=== PATIENT | male | born 1945 | race Caucasian/White ===

== ENCOUNTER 2017-12-01 10:16 | Emergency (ER) | payer MEDICARE ==
[2017-12-01 10:47] VITALS: BP 165/75
--- NOTE | 2017-12-01 11:15 | UC ---
Skin Complaint HPI - HPI Summary HPI Summary: , pt noted a discomfort to his L inner thigh. last pm he noted a couple of spots to his L upper that now look "clustered" plus there are more spots to his inner thigh. he belen any fever, changes in his BS, malaise and swollen glands in his groin. he wonders if it is an insect bite. he denies any other rash and no family has the rash. he self tx last pm with topical benadryl and topical antibiotic with no change. he states is does not itch or hurt. pt also notes some decreased sensation in his L leg but "only on the surface and not deep". he has peripheral neuropathy but wants to ensure not related to this rash. he denies any back pain. - History of Current Complaint Chief Complaint: UCSkin Time Seen by Provider: 12/01/17 11:08 Stated Complaint: LEFT LEG COMPLAINT Hx Obtained From: Patient, Family/Diaper Machine Tender Onset/Duration: Gradual Onset Timing: Constant Pain Intensity: 1 Aggravating Factor(s): Nothing Alleviating Factor(s): Nothing Associated Signs & Symptoms: Positive: Rash. Negative: Fever, Tenderness, Red Streaks - Allergy/Home Medications Allergies/Adverse Reactions: Allergies Allergy/AdvReac Type Severity Reaction Status Date / Time No Known Allergies Allergy Verified 12/01/17 10:34 Home Medications: Home Medications Aspirin 325 mg PO DAILY 12/01/17 [History Confirmed 12/01/17] Canagliflozin (NF) [Invokana (NF)] 100 mg PO DAILY 12/01/17 [History Confirmed 12/01/17] Glyburid/Metformin 5/500(NF) [Glucovance 5/500 (NF)] 1 tab PO BID 12/01/17 [ History Confirmed 12/01/17] Isosorbide Mononitrate ER TAB* [Imdur ER TAB*] 30 mg PO DAILY 12/01/17 [History Confirmed 12/01/17] Rosuvastatin (NF) [Crestor (NF)] 40 mg PO DAILY 12/01/17 [History Confirmed ] Tamsulosin CAP* [Flomax CAP*] 0.4 mg PO DAILY 12/01/17 [History Confirmed ] Review of Systems Constitutional: Negative Skin: Rash - LLE Eyes: Negative ENT: Negative Respiratory: Negative Cardiovascular: Negative Gastrointestinal: Negative Genitourinary: Negative Motor: Negative Neurovascular: Negative Musculoskeletal: Negative Neurological: Numbness - LLE Psychological: Negative All Other Systems Reviewed And Are Negative: Yes PMH/Surg Hx/FS Hx/Imm Hx - Additional Past Medical History Additional PMH: diabetic neuropathy LLE Endocrine History: Diabetes, Dyslipidemia Cardiovascular History: Cardiac Disease - Surgical History Surgical History: Yes Surgery Procedure, Year, and Place: quad bipass - Family History Known Family History: Positive: Other - high cholesterol - Social History Occupation: Retired Lives: With Family Alcohol Use: None Substance Use Type: None Smoking Status (MU): Never Smoked Tobacco - Immunization History Vaccination Up to Date: Yes Physical Exam Triage Information Reviewed: Yes Appearance: Well-Appearing Vital Signs: Initial Vital Signs Temp 97.7 F 12/01/17 10:36 Pulse 70 12/01/17 10:36 Resp 16 12/01/17 10:36 BP 165/75 12/01/17 10:36 Pulse Ox 100 12/01/17 10:36 Vital Signs Reviewed: Yes Eyes: Positive: Conjunctiva Clear ENT: Positive: Pharynx normal, TMs normal. Negative: Nasal congestion, Nasal drainage Neck: Positive: Supple, Nontender, No Lymphadenopathy Respiratory: Positive: Lungs clear, Normal breath sounds Cardiovascular: Positive: RRR, No Murmur Abdomen Description: Positive: Nontender, No Organomegaly, Soft, Other: - No inguinal adenopathy. Negative: Distended, Guarding Bowel Sounds: Positive: Present Musculoskeletal: Positive: ROM Intact, No Edema Neurological: Positive: Alert, Other: - decreased superficial sensation LLE, mostly lateral compared to R otherwise pt has grosss s/v/m function x4 and a normal steady gait. sciatic notch on L is non tender, spine is non tender. he has negative straight leg raises. Psychological: Positive: Normal Response To Family, Age Appropriate Behavior Skin Exam: Normal Skin: Positive: rashes - L upper anterior to medial thigh has a single cluster of 6 tiny vesicle. The L upper inner thigh has a dozen scattered-non clustered tiny vesicle. There are no pustules. The spots are not petechial or tender to touch. There are no burrows or scale. Course/Dx - Course Course Of Treatment: pt advised of hx neuropathy LLE. I think the decreased sensation is from his neuropathy. there is nothing to suggest lumbar radiculopathy or sciatica or central neurologic process. The rash is no c/w insect bites, contact dermatitis, fungus and does not look bacterial. It is not typical for shingles but looks most c/w a herpetic type of rash. pt declined viral and bacterial cultures or the rash. he also declined antiviral tx. pt wishes to observe the rash. since his pcp is in [place] I will refer him to dermatology for f/u. need for recheck immediately if any worsening stressed at time of visit. BP repeated at time of d/c and improved. Does have hx tx HTN. - Diagnoses Provider Diagnoses: Acute rash L upper thigh. Diabetic neuropathy LLE Discharge - Sign-Out/Discharge Documenting (check all that apply): Patient Departure All imaging exams completed and their final reports reviewed: No Studies - Discharge Plan Condition: Stable Disposition: HOME Patient Education Materials: Diabetic Peripheral Neuropathy (ED), Acute Rash ( ED) Referrals: Scott Gore MD [Medical Doctor] - 7 Days Additional Instructions: DIAGNOSIS: ACUTE RASH LEFT UPPER INNER THIGH. NEUROPATHY LEFT LEG. YOU MAY APPLY YOUR CALADRYL PER LABEL. RECHECK IMMEDIATELY FOR CHANGES / WORSENING - Billing Disposition and Condition Condition: STABLE Disposition: Home
== END 2017-12-01 12:00 | disposition home or self-care (01) ==
LOC: UCCORT 10:16
DX: E11.40 Type 2 diabetes mellitus with diabetic neuropathy, unspecified (principal); R21 Rash and other nonspecific skin eruption; I10 Essential (primary) hypertension
CPT/HCPCS: 99201; G0463

== ENCOUNTER 2017-12-04 08:43 | Emergency (ER) | payer MEDICARE ==
[2017-12-04 09:31] VITALS: BP 150/63
--- NOTE | 2017-12-04 09:38 | UC ---
Skin Complaint HPI - HPI Summary HPI Summary: rash left upper thigh x 6 days the rash is red, multiple blisters, achy, radiating to his left leg no fever, no chills, - History of Current Complaint Chief Complaint: UCRash Time Seen by Provider: 12/04/17 09:09 Stated Complaint: RASH RT UPPER THIGH Hx Obtained From: Patient Onset/Duration: Gradual Onset, Lasting Days - 6, Still Present Timing: Constant Onset Severity: Moderate Current Severity: Moderate Pain Intensity: 3 Location: Discrete - left upper thigh Character: Swelling, Pain, Redness Aggravating Factor(s): Touch Alleviating Factor(s): Nothing Associated Signs & Symptoms: Negative: Nausea, Vomiting, Numbness, Fever, Chills - Allergy/Home Medications Allergies/Adverse Reactions: Allergies Allergy/AdvReac Type Severity Reaction Status Date / Time No Known Allergies Allergy Verified 12/04/17 09:26 Review of Systems Constitutional: Negative Skin: Rash Eyes: Negative ENT: Negative Respiratory: Negative Is Patient Immunocompromised?: No All Other Systems Reviewed And Are Negative: Yes PMH/Surg Hx/FS Hx/Imm Hx Endocrine History: Diabetes - Surgical History Surgical History: Yes Surgery Procedure, Year, and Place: [facility] - Family History Known Family History: Positive: Other - high cholesterol - Social History Alcohol Use: None Substance Use Type: None Smoking Status (MU): Never Smoked Tobacco - Immunization History Vaccination Up to Date: Yes Physical Exam Triage Information Reviewed: Yes Appearance: Well-Appearing, No Pain Distress, Well-Nourished Vital Signs: Initial Vital Signs Temp 97.9 F 12/04/17 09:26 Pulse 59 12/04/17 09:26 Resp 18 12/04/17 09:26 BP 150/63 12/04/17 09:26 Pulse Ox 100 12/04/17 09:26 Vital Signs Reviewed: Yes Eye Exam: Normal Eyes: Positive: Conjunctiva Clear ENT: Positive: Normal ENT inspection, Hearing grossly normal, Pharynx normal Neck exam: Normal Neck: Positive: Supple, Nontender, No Lymphadenopathy Respiratory: Positive: Chest non-tender, Lungs clear, Normal breath sounds Cardiovascular: Positive: RRR, No Murmur, Pulses Normal Musculoskeletal Exam: Normal Skin: Positive: rashes - visicular rash left upper thigh, + erythema, mild tenderness Course/Dx - Diagnoses Provider Diagnoses: shingles left thigh Discharge - Sign-Out/Discharge Documenting (check all that apply): Patient Departure All imaging exams completed and their final reports reviewed: No Studies - Discharge Plan Condition: Stable Disposition: HOME Prescriptions: ValACYclovir (*) [Valtrex 1 GM(*)] 1 gm PO TID #21 tab Patient Education Materials: Stone (ED) Referrals: No Primary Care Phys,NOPCP [Primary Care Provider] - 5 Days - Billing Disposition and Condition Condition: STABLE Disposition: Home
== END 2017-12-04 09:39 | disposition home or self-care (01) ==
LOC: UCCORT 08:43
DX: B02.9 Zoster without complications (principal); E11.9 Type 2 diabetes mellitus without complications
CPT/HCPCS: 99212; G0463